=== PATIENT | female | born 1965 | race Caucasian/White ===

== ENCOUNTER 2019-06-21 19:20 | Emergency (ER) | payer OTHER ==
[~2019-06-21] VITALS: Ht 167.6 cm; Wt 74.4 kg
== END 2019-06-22 00:09 | disposition home or self-care (01) ==
LOC: ER 19:20
DX: T65.891A Toxic effect of other specified substances, accidental (unintentional), initial encounter (principal); R06.02 Shortness of breath; J68.8 Other respiratory conditions due to chemicals, gases, fumes and vapors; Y92.090 Kitchen in other non-institutional residence as the place of occurrence of the external cause; R11.2 Nausea with vomiting, unspecified